=== PATIENT | female | born 1945 | race Caucasian/White ===

== ENCOUNTER → 2017-05-15 | Outpatient (CLI) | payer OTHER ==
--- NOTE | 2017-05-16 08:11 | REP ---
Clinical: Follow up abnormal findings. Comparison: 08/15/2016, 06/19/2016. Findings: The lung jaimes are well-aerated and relatively symmetric. Mild chronic emphysematous changes and scattered age-related interstitial changes are again appreciated and essentially unchanged. Small nodular density measuring 2 mm in the periphery of the right middle lobe (image 42) remain stable compared to 06/19/2016. The previously concerning semisolid density in the basilar right middle lobe has completely resolved. No new significant or concerning areas of consolidation, nodule or mass lesion appreciated. No pleural effusion/reaction. No pneumothorax. Tracheobronchial tree is patent. Mediastinum is stable and again demonstrates atherosclerotic changes to the thoracic aorta and coronary arteries without aneurysm or cardiomegaly. Surrounding musculoskeletal structures demonstrate age-related changes. Impression: 1. Mild chronic emphysematous and age-related changes remain stable. 2. Previously concerning non solid lesion in the basilar right middle lobe has completely resolved. 3. No significant acute mediastinal or pleuroparenchymal process appreciated. Signed by Eric Ramos MD 05/16/2017 03:49 A
== END ==
LOC: M RAD 11:18
PROVIDERS: ATTEND Internal Medicine Pulmonary Disease
DX: R91.8 Other nonspecific abnormal finding of lung field (principal)